=== PATIENT | male | born 1980 | race Caucasian/White ===

== ENCOUNTER 2024-01-07 18:02 | Emergency (ER) | payer BC, SELFPAY ==
[2024-01-07 18:03] VITALS: BP 107/64; PULSE 66; RESP 18; TEMP 36.8; O2SAT 97; BMI 23.1
--- NOTE | 2024-01-07 18:12 | EX.ED.UPPERE ---
HPI History of Present Illness Chief Complaint: Laceration Narrative Narrative: 43-year-old male who denies significant past medical history, right arm dominant, presents with injury to his right biceps/laceration that he sustained within the last hour. He stated that he is doing renovations on a house, and a 35-year-old mirror that he was trying to load into the dumpster got caught on something that was already in there, and it shattering. A piece of the mirror hit his right biceps and he sustained a laceration. He is unsure of his last tetanus immunization. He denies other injury. PFSH [facility] Medical History no medical history Home Medications ?Medication ?Instructions ?Recorded ?Last Taken ?Type NK 01/07/24 Unknown History Allergy/AdvReac Type Severity Reaction Status Date / Time No Known Allergies Allergy Verified 01/07/24 18:05 Surgical History no surgical history Social History Smoking Status: Never smoker ROS ROS ED ROS Narrative Constitutional: No fever, no chills. HEENT: No sore throat. No neck pain. No loss of vision. No rhinorrhea. Cardiovascular: No chest pain. No palpitations. No pedal edema. Respiratory: No cough, no shortness of breath. Abdominal: No abdominal pain. No nausea. No vomiting. Genitourinary: No dysuria. No hematuria. Musculoskeletal: No myalgias. No arthralgias. Neurologic: No headaches. No dizziness. No lightheadedness. Skin: No rash. No change in color. Positive laceration to right biceps. Abrasion to right pectoral area. Psychiatric: No depression. No anxiety. EXAM Physical Exam Narrative Exam Narrative: GCS 15. ABCs intact. Regular rate and rhythm. Lungs clear to auscultation bilaterally. Abdomen soft nontender with normal active bowel sounds. There is a 4 cm flap-like laceration on the biceps area with exposed adipose, but no tendon or muscle involvement apparent through range of motion of right forearm/flexion extension. Dopplerable radial pulse. Uninjured at elbow and below. Additionally, there are small linear abrasions on the right pectoral area, no active bleeding. Const Vital Signs: 01/07/24 18:03 Temperature 98.2 F Temperature Source Temporal Pulse Rate 66 Respiratory Rate 18 Blood Pressure 107/64 Blood Pressure Mean 78 Pulse Ox 97 Oxygen Delivery Method Room Air MDM MDM MDM Narrative Medical decision making narrative: Differential diagnosis is not applicable. I do not feel x-rays are indicated. He was given a Boostrix immunization, and lidocaine 1% will be used as a local anesthetic for laceration repair. He was informed of the risk of infection and scarring and acknowledges an understanding. Procedure note: Lidocaine 1% was used as a local anesthetic. Wound was cleansed using saline and Shur-Clens. In breaking the skin together, there is avulsion injury noted on the upper portion of the laceration. There is also avulsion of the tip of the flap of skin. A total of 5 simple interrupted sutures were used using 4 point 0 Ethilon and placed by FRANKI. Patient tolerated procedure well. Upon inspection after procedure, patient was informed of the avulsion/skin avulsion on the upper portion of his laceration that will have to heal by secondary intent. The goal was to close the gaping skin as best as possible. He will have the sutures removed in 7 to 10 days by her primary care provider, or return to the emergency department. He was told to look for signs of infection. As he had declined any analgesia here in the emergency department, I do not feel narcotics are indicated and he can take [id number] medications as needed. Return instructions to the emergency department were reviewed. Disposition is discharged home in stable condition. Discharge Plan Triage Chief Complaint: Laceration ED Provider: Brandon Dumont Dx/Rx/DC Orders Clinical Impression: Laceration of upper arm, Abrasion of chest wall, Skin avulsion Instructions: ED Abrasion, ED Laceration, All Closures, ED Skin Tear (Skin Avulsion) Prescriptions: No Action NK Primary Care Provider: Annika Caruso,Out of Referrals: Maco Perez MD [Med Staff - Active Staff] - 10 Day for suture removal Annika Caruso,Out of [Primary Care Provider] - Activity Restrictions/Additional Instructions: Have sutures removed in 7 to 10 days. Return with fever, redness around wound, drainage of pus from wound, new or worsening symptoms. Print Language: Danish Disposition Disposition: Home, Self Care
[2024-01-07] MEDS: Diphth,Pertuss(Acell),Tet Vac 0.5 ML Vial IM (18:17)
[2024-01-07] MEDS: Lidocaine 1% (20 ml mdv) 20 ML Vial INFILT (18:17)
[2024-01-07 18:48] VITALS: BP 113/88; PULSE 61; RESP 16; TEMP 36.6; O2SAT 99
== END 2024-01-07 19:01 | disposition home or self-care (01) ==
LOC: ED 18:56
PROVIDERS: Emergency Provider Emergency Medicine; Visit Provider Emergency Medicine
DX: S41.111A Laceration without foreign body of right upper arm, initial encounter (principal); W25.XXXA Contact with sharp glass, initial encounter; Y93.89 Activity, other specified; Y92.019 Unspecified place in single-family (private) house as the place of occurrence of the external cause; Z23 Encounter for immunization; S20.91XA Abrasion of unspecified parts of thorax, initial encounter
CPT/HCPCS: 12002; 90715; 99284